=== PATIENT | male | born 1955 | race Two or more races ===

== ENCOUNTER 2018-09-13 14:58 | Outpatient (CLI) | payer OTHER ==
[~2018-09-13 14:58] MED LIST: ASA81 MG PO; SIMVASTATIN20 MG PO
== END 2018-09-13 15:01 | disposition home or self-care (01) ==
LOC: RAD 14:58
DX: M15.8 Other polyosteoarthritis (principal)

== ENCOUNTER 2022-12-29 10:07 | Outpatient (CLI) | payer OTHER | END 2022-12-29 10:12 | disposition home or self-care (01) | LOC: RAD 10:07 | PROVIDERS: ATTEND General Practice | DX: C34.2 Malignant neoplasm of middle lobe, bronchus or lung (principal) ==